=== PATIENT | male | born 2005 | race Caucasian/White ===

== ENCOUNTER 2023-07-01 13:51 | Emergency (ER) | payer OTHER, SELFPAY ==
[2023-07-01 14:40] VITALS: BP 129/71; PULSE 76; RESP 19; TEMP 36.6; O2SAT 100; BMI 30.3
--- NOTE | 2023-07-01 15:05 | EXP.UTC ---
Discharge Plan Disposition Patient Disposition: Home, Self-Care Condition: Good Prescriptions Prescriptions: New sulfamethoxazole-trimethoprim [Bactrim DS] 800-160 mg tablet 1 tab PO Q12H Qty: 20 0RF cephalexin 500 mg capsule 500 mg PO TID 7 Days Qty: 21 0RF mupirocin 2 % ointment 1 applic topical TID 10 Days Qty: 22 0RF No Action Fycompa 4 mg tablet 8 mg PO DAILY Referrals Follow up/Referrals: Fransisco Davis DO [Primary Care Provider] - See instructions Activity Restrictions/Add. Instructions Additional Instructions/Restrictions: *Monitor Temp, Over the counter Motrin or Tylenol as directed/as needed Tylenol every 4 hours and Motrin every 6 hours (as long as your family doctor has told you that you can take it) for fever or pain. and straight to ER if unable to lower temp less than 101.0 after medication given *Warm salt water gargles may help to soothe the throat *Throat Lozenges? *Warm fluids like tea with honey may help to soothe the throat? *Sleep elevated *Humidifier/Vaporizer Your throat swab was sent for culture. Those results are typically sent to your primary care. Be sure to follow up in 2-3 days with your family doctor/primary care physician if no improvement so they can review those result and treat if necessary. If you don?t have a primary care doctor, I recommend you get one but in the mean time, you will have to return to a walk in clinic Follow up IMMEDIATELY for new or worsening symptoms or no Noticeable improvement over the next 48-72 hours. 911 for difficulty breathing or swallowing Clinical Impressions Clinical Impression: Skin problem Instructions Patient Instructions: DI for Boils, DI for Cellulitis -- Adult Discharge ED Provider: Loni Tena [facility] General Stated complaint: multiple boils on right calf, cough Mode of Arrival: Ambulatory Source of Information: Patient and Relative Limitations: No Limitations Time Seen by Provider: 07/01/23 15:05 Description of Symptoms (Recalled from Triage Doc. by RN): PATIENT C/O BOILS TO RIGHT LEG SINCE THIS MORNING HEENT Symptoms (Recalled from RN notes): No Resp Symptoms (Recalled from RN notes): No Skin Symptoms (Recalled from RN notes): Yes MS Symptoms (Recalled from RN notes): No Functional Status (Recalled from RN notes): WNL History of Present Illness Provider Complaint: Patient states that he noticed a boil like area on his right calf this morning and thinks that one is starting on his left upper thigh area States that he was worried if he didnt come in and get something they would get worse States that he has also been having cough scratchy throat wants to get tested for Flu and strep throat Related Data Home Medications Medication Instructions Recorded Confirmed perampanel 4 mg tablet (Fycompa) 8 mg PO DAILY 07/01/23 07/01/23 Previous Rx's Medication Instructions Recorded cephalexin 500 mg capsule 500 mg PO TID 7 days #21 caps 07/01/23 mupirocin 2 % topical ointment 1 applic topical TID 10 days #22 07/01/23 grams sulfamethoxazole 800 1 tab PO Q12H #20 tabs 07/01/23 mg-trimethoprim 160 mg tablet (Bactrim DS) Allergies Allergy/AdvReac Type Severity Reaction Status Date / Time No Known Allergies Allergy Verified 05/10/23 14:27 Worker's Comp Is this a Worker's Comp case?: No [facility] Disclaimer: The information contained in this section may have been updated after the patient was seen, as this information can be updated by other users. Medical History (Updated 07/01/23 @ 15:47 by Loni Tena APRN) Migraine Seizure disorder Family History (Updated 05/10/23 @ 14:42 by SOFÍA Adams) Son Adopted Mother Heart attack Hypertension Family/Other Asthma Cancer Coronary artery disease Grandmother Heart attack Social History Smoking Status: Never smoker alcoho
[2023-07-01 15:37] LABS: UTC Strep Screen (Rapid) Negative (Negative)
[2023-07-01 15:39] LABS: UTC Influenza A Antigen Negative (Negative)
[2023-07-01 15:40] LABS: UTC Influenza B Antigen Negative (Negative)
[2023-07-01 15:43] VITALS: BP 129/71; PULSE 76; RESP 19; TEMP 36.6; O2SAT 100
== END 2023-07-01 15:49 | disposition home or self-care (01) ==
PROVIDERS: Emergency Provider Nurse Practitioner; PCP Internal Medicine
DX: L02.92 Furuncle, unspecified (principal); L03.115 Cellulitis of right lower limb; R05.9 Cough, unspecified; R07.0 Pain in throat; G40.909 Epilepsy, unspecified, not intractable, without status epilepticus
CPT/HCPCS: 87804; 87880; 99204; 99212; G0463

== ENCOUNTER 2024-06-18 20:13 | Emergency (ER) | payer OTHER, SELFPAY ==
[2024-06-18 20:13] VITALS: BP 166/93; PULSE 121; RESP 18; TEMP 37.3; O2SAT 96; BMI 77.0
--- NOTE | 2024-06-18 20:20 | CT_ITS ---
PROCEDURE INFORMATION: Exam: CT Head Without Contrast Exam date and time: 06/18/2024 8:36 PM Age: 18 years old Clinical indication: Other: Fall seizure, anisocoria l>r; Additional info: Fall, seiure, anisocoria l>r TECHNIQUE: Imaging protocol: Computed tomography of the head without contrast. Radiation optimization: All CT scans at this facility use at least one of these dose optimization techniques: automated exposure control; mA and/or kV adjustment per patient size (includes targeted exams where dose is matched to clinical indication); or iterative reconstruction. COMPARISON: No relevant prior studies available. FINDINGS: Brain: Normal. No hemorrhage. Unremarkable white matter. No mass effect. Cerebral ventricles: No ventriculomegaly. Paranasal sinuses: Visualized sinuses are unremarkable. No fluid levels. Mastoid air cells: Visualized mastoid air cells are well aerated. Bones: Minimal mucosal thickening of the right maxillary and right ethmoid. No fluid levels. Soft tissues: Unremarkable. IMPRESSION: No acute intracranial abnormality.
--- NOTE | 2024-06-18 20:22 | ECG_ITS ---
APPROVED REPORT Exam: Resting ECG HR:110 bpm ECG Measurements Heart Rate 110 AXES MI 136 P 66 QRSd 99 QRS 15 QT 313 T 69 QTc 378 Conclusion SINUS TACHYCARDIA NONSPECIFIC T-WAVE ABNORMALITY ABNORMAL RHYTHM ECG UNCONFIRMED REPORT Electronically signed by : AGNES CASILLAS, 06/19/2024 06:44:09
--- NOTE | 2024-06-18 20:27 | HMH.EDGENADL ---
Discharge Plan Disposition Patient Disposition: Home, Self-Care Prescriptions Prescriptions: No Action Fycompa 10 mg tablet 10 mg PO Patient Comments: TAKE 1 TABLET BY MOUTH ONCE DAILY NIGHTLY MAX DAILY AMOUNT 10MG docusate sodium [Colace] 100 mg capsule 100 mg PO BID Qty: 60 0RF Jyotsna-Valentino Kit 2-2 % kit See Rx Instructions [place] .COMPLEX Qty: 1 1RF Rx Instructions: clean area with WIPE; insert applicatorful of HYDROCORTISONE-LIDOCAINE CREAM rectally 2 times daily Activity Restrictions/Add. Instructions Additional Instructions/Restrictions: Call your family doctor to establish care for this visit to the emergency department and schedule follow-up within 48 hours to ensure improvement. If you have any worsening of your condition or any other concerning signs or symptoms, return to the emergency department or your primary care doctor for further evaluation. Take Tylenol 1000 mg every 6 hours (4 times daily) and ibuprofen 400 mg every 6 hours (4 times daily) as needed with food and water to prevent GI upset and kidney damage. Seizure precautions - do not do any of these activities until cleared by your neurologist: 1) avoid sleep deprivation 2) avoid open bodies of water and open flames 3) avoid swimming alone 4) take showers, do not take baths 5) avoid any situation where loss of consciousness may predispose to injury or 6) avoid driving Clinical Impressions Clinical Impression: Generalized tonic-clonic seizure Stand Alone Forms Stand Alone Forms: Work/School Release Instructions Patient Instructions: DI for Seizure Disorder -- Adult, DI for Seizure (Not Epilepsy/Seizure Disorder), DI for Seizure Disorder -- Child Print Language Print Language: Lithuanian Discharge ED Provider: Bhanu Muñoz General Adult HPI General Chief complaint: Seizure Stated complaint: Seizure Time Seen by Provider: 06/18/24 20:18 History of Present Illness HPI narrative: Please note that above description of symptoms, in this electronic medical record under categorization of recalled from ER triage doctor by RN are reflective of an initial nursing assessment, however, is not reflective of my full history and physical exam that was personally taken and clarified. Consequentially, this preceding description of symptoms, which may include the patient's categorized chief complaint in the EMR, do not reflect my personal clinical impression, and the ultimate description of history of present illness and patient stated complaints should be deferred to this section of the note. Unless stated otherwise or congruent with this section of the note, additional signs, symptoms, or incongruence should be interpreted as inaccurate with my clinical impression. Related Data Home Medications ?Medication ?Instructions ?Recorded ?Confirmed perampanel 10 mg tablet (Fycompa) 10 mg PO 03/02/24 03/02/24 Previous Rx's ?Medication ?Instructions ?Recorded docusate sodium 100 mg capsule 100 mg PO BID #60 caps 03/05/24 (Colace) lidocaine 2 %-hydrocortisone 2 See Rx Instructions ND .COMPLEX #1 03/05/24 %-aloe vera rectal kit (Jyotsna-Valentino) ea Allergies Allergy/AdvReac Type Severity Reaction Status Date / Time No Known Allergies Allergy Verified 03/02/24 09:38 [facility] Disclaimer: The information contained in this section may have been updated after the patient was seen, as this information can be updated by other users. Medical History (Updated 06/18/24 @ 22:42 by Bhanu Muñoz MD) Bright red blood per rectum Establishing care with new doctor, encounter for Skin problem Seizure disorder Migraine Surgical History No significant past surgical history Family History Son Adopted Mother Heart attack Hypertension Family/Other Asthma Cancer Coronary artery disease Grandmother Heart attack Social History Smoking Status: Never smoker alcohol intake: never substance use type: denies use current occupational status: unemployed Travel in the last 8 weeks: None Other Medical History Have you received the Pneumonia Vaccine: No ROS Obtained: Yes All systems reviewed & no additional complaints except as documented Physical Exam General General appearance: alert and in no apparent distress Head Head exam: atraumatic and normocephalic Eye Eye exam: Present normal appearance and EOMI; Absent PERRL (anisocoria, L>R 1mm) Neck Neck exam: Present normal inspection, full ROM and trachea midline Respiratory Respiratory exam: Present normal lung sounds bilaterally; Absent respiratory distress, wheezes, stridor, accessory muscle use or prolonged expiratory phase Cardiovascular Cardiovascular exam: Present regular rate, normal rhythm and other (Pulses equal symmetric in upper and lower extremities) Abdominal Exam Abdominal exam: Present soft; Absent distention, tenderness or pulsatile mass Extremities Exam Extremities exam: Absent edema Neurological Exam Neurological exam: Present alert, oriented X3, CN II-XII intact, reflexes normal and other (normal cerebellar exam); Absent motor sensory deficit Skin Skin exam: Present warm and dry; Absent diaphoresis or erythema Medical Decision Making Medical Records Medical records reviewed: Yes I reviewed the patient's medical records. Screening: Per USPSTF and CDC recommendations, given the prevalence of disease in our region, it is our hospital?s policy to screen for HIV and viral Hepatitis for all patients aged 18 and over and those with ongoing risk factors. Bhupinder Inquiry Pt receiving controlled substance: No Bhupinder was queried for this patient: No Vital Signs: 06/18/24 20:13 06/18/24 20:47 06/18/24 22:55 Temperature 99.1 F 0 F L 0 F L Temperature Source Oral Pulse Rate 89 81 Pulse Rate [Apical] 121 H Respiratory Rate 18 20 18 Blood Pressure 131/69 121/69 Blood Pressure [Right Arm] 166/93 H Blood Pressure Mean [Right Arm] 117 02 Sat by Pulse Oximetry 96 98 Oxygen Delivery Method Room Air Room Air Room Air Lab Data Lab Results 06/18/24 20:21: WBC 10.2, RBC 4.91, Hgb 16.1, Hct 47.7, MCV 97.0 H, MCH 32.9 H, MCHC 33.9, RDW 12.5, Plt Count 347, MPV 6.8 L, Neut % (Auto) 58.4, Lymph % (Auto) 32.6, [place] % (Auto) 5.1, Eos % (Auto) 2.8, Baso % (Auto) 1.1, Neut # (Auto) 6.0, Lymph # (Auto) 3.3, Will[place] # (Auto) 0.5, Eos # (Auto) 0.3, Baso # (Auto) 0.1, PT 11.4, INR 1.02, Sodium 139, Potassium 4.0, Chloride 102, Carbon Dioxide 20 L, Anion Gap 21.0 H, BUN 23 H, Creatinine 1.30 H, Estimated Creat Clear 102, Estimated GFR 70, Est GFR ( Amer) 85, Glucose 111 H, Calcium 9.7, Magnesium 2.0, Total Bilirubin 0.5, AST 42, ALT 33, Alkaline Phosphatase 54, Troponin I < 0.01, Total Protein 7.9, Albumin 5.1 H, Globulin 2.8, Albumin/Globulin Ratio 1.8, Lipase 133, TSH 2.61, Thyroxine (T4) 7.1, Salicylates < 1.0 L, Acetaminophen < 10 L, Plasma/Serum Alcohol < 10, HIV 1&2 Antibody Rapid Nonreactive 06/18/24 20:23: VBG pH 7.27 L, VBG pCO2 42.1, VBG pO2 46.8 H, VBG HCO3 18.8 L, VBG Total CO2 20.1 L, VBG O2 Saturation 78.3 H, VBG Base Excess -8.2 L, VBG Lactic Acid 7.9 H 06/18/24 21:32: Urine Color Yellow, Urine Appearance Clear, Urine pH 6.0, Ur Specific Elbe >= 1.030, Urine Protein 2+ A, Urine Glucose (UA) Negative, Urine Ketones Negative, Urine Blood 1+ A, Urine Nitrate Negative, Urine Bilirubin Negative, Urine Urobilinogen 0.2, Ur Leukocyte Esterase Negative, Urine RBC None, Urine WBC Occasional, Ur Squamous Epith Cells Occasional, Urine Bacteria Trace, Urine Opiates Screen Negative, Urine Methadone Screen Negative, Ur Barbituates Screen Negative, Ur Phencyclidine Scrn Negative, Ur Amphetamines Screen Negative, Urine Cocaine Screen Negative, U Marijuana (THC) Screen Negative 06/18/24 20:21 06/18/24 20:21 Orders (Tests/Meds): ED MEDICATIONS Discontinued Medications Generic Name Dose Route Start Last Admin Trade Name Meolq PRN Reason Stop Dose Admin Acetaminophen 1,000 mg 06/18/24 21:34 06/18/24 21:36 Acetaminophen 500mg Tab PO 06/18/24 21:35 1,000 mg ONCE ONE Administration Levetiracetam 2,400 mg/ Sodium 124 mls @ 248 mls/hr 06/18/24 20:45 06/18/24 21:03 Chloride IV 06/18/24 20:46 248 mls/hr ONCE ONE Administration Lactated Ringer's 1,000 mls @ 999 mls/hr 06/18/24 21:41 06/18/24 21:50 Lactated Ringer's 1000 Ml Bag IV 06/18/24 22:41 999 mls/hr .Q1H1M ONE Administration Ketorolac Tromethamine 15 mg 06/18/24 22:40 06/18/24 22:45 Ketorolac 30mg/Ml Vial IV 06/18/24 22:41 15 mg ONCE ONE Administration ORDERS Category Date Time Status CT head/brain wo con Stat Cat Scan 06/18/24 20:20 Completed Acetaminophen Stat Lab 06/18/24 20:21 Completed Complete Blood Count Auto Diff Stat Lab 06/18/24 20:21 Completed Comprehensive Metabolic Panel Stat Lab 06/18/24 20:21 Completed Ethanol [Ethyl Alcohol] Stat Lab 06/18/24 20:21 Completed HIV (1&2) Antibody Rapid Stat Lab 06/18/24 20:21 Completed Hep C Ab with Reflex to RNA Stat Lab 06/18/24 20:21 Received Lipase Stat Lab 06/18/24 20:21 Completed Magnesium Stat Lab 06/18/24 20:21 Completed PT INR [Prothrombin Time INR] Stat Lab 06/18/24 20:21 Completed Salicylate Stat Lab 06/18/24 20:21 Completed T4 (Thyroxine) Stat Lab 06/18/24 20:21 Completed TSH [Thyroid Stimulating Hormone] Stat Lab 06/18/24 20:21 Completed Troponin I Q3H Lab 06/18/24 23:30 Ordered Troponin I Stat Lab 06/18/24 20:21 Completed UDS [Drug Screen,Urine] Stat Lab 06/18/24 21:32 Results Urinalysis and Microscopic Stat Lab 06/18/24 21:32 Completed Venous Blood Gas Stat RT 06/18/24 20:23 Completed Medical Decision Narrative: 18-year-old male history of seizure disorder on Briviact presenting with seizure. Patient was found at a local establishment on the ground. Unknown how long he was there. Patient states he does not remember anything from today, 06/18. States that he has a headache. Family states that he is always complaining of headache. Further conversation reveals that patient had episode where he fell at home, unknown seizure activity about a week prior to this. Denies neck pain, chest pain, nausea, vomiting. States that his tongue hurts. EMS was called. On arrival, glucose greater than 120. Patient disoriented. Brought to ED for further evaluation. On arrival, patient alert, oriented, but slow to respond. Neuroexam with anisocoria left pupil 4 mm and reactive, right 3 mm and reactive, but otherwise cranial nerves are intact and symmetric. Motor and sensory exam intact and symmetric. Cerebellar exam normal in upper and lower extremities. Cardiac exam without murmurs gallops or rubs. Abdomen soft, nontender, nondistended. Patient has bilateral conjunctival injection, bite dunn on his tongue. Did not appear to lose continence. Denies drug or alcohol use. Differential includes epileptic seizure, metabolic, endocrinologic, drug-induced, intoxication, withdrawal, among others. Patient placed in seizure precautions, EKG was obtained and independently interpreted. Sinus tachycardia 110 bpm with ND interval 136, QRS 99, QTc 378. Leftward axis. No acute ischemic change. Patient placed on gambling monitor and continuous pulse oximetry with initial blood pressure 166/93, heart rate 121, O2 sat 96% on room air. Given 20 Mg per KG Keppra load IV. Hematologic workup independently interpreted and significant for nonactionable CBC. Chemistry with DAVID, given fluids for this.. Urine independently interpreted and significant for hematuria and proteinuria. Total protein and albumin normal. Thyroid studies normal imaging independently interpreted and significant for no acute intracranial hemorrhage. On repeat evaluation, patient states that he is feeling better, no further episodes here in the emergency department. Has close follow-up with his neurologist, family at bedside to corroborate this. Given 15 mg Toradol after fluids and discharged. Because patient at baseline without signs or symptoms of clinical decompensation, deemed appropriate for discharge. Results were relayed to patient who voiced understanding and were agreeable to outpatient management and follow up. I discussed my clinical impression with patient and answered all questions. At this time, the evidence for any other entities in the differential is insufficient to warrant any further testing or ED observation. This was explained as well. Advisory was given that persistent or worsening symptoms require further evaluation. I confirmed the understanding of this discussion. Chief Specialist Leed disclaimer Much of this encounter note is an electronic clean rice grader and reel tender spoken language to printed text. Electronic clean rice grader and reel tender of the spoken language may permit errors. Although I have reviewed the note, some errors may still exist. Critical Care Critical Care Time Critical Care Time: No
[2024-06-18 20:36] LABS: Basophils # 0.1 K/mm3 (0-0.2); Basophils % 1.1 % (0.1-2.0); Eosinophils # 0.3 K/mm3 (0.0-0.4); Eosinophils % 2.8 % (0.1-12.0); Hematocrit 47.7 % (42.0-52.0); Hemoglobin 16.1 g/dL (14.1-18.0); Lymphocytes # 3.3 K/mm3 (0.7-4.5); Lymphocytes % 32.6 % (10-50); Mean Corpuscular HGB Conc 33.9 g/dL (31.8-35.4); Mean Corpuscular Hemoglobin 32.9 pg (27.0-31.2); Mean Platelet Volume 6.8 fl (7.4-10.4); Monocytes # 0.5 K/mm3 (0.1-1.0); Monocytes % 5.1 % (1.7-9.3); Neutrophils % 58.4 % (37.0-80.0); Platelet Count 347 K/mm3 (142-424); Red Blood Count 4.91 M/mm3 (4.60-6.20); Red Cell Distribution Width 12.5 % (11.5-17.5); White Blood Count 10.2 K/mm3 (4.5-13.0)
[2024-06-18 20:45] LABS: INR 1.02 (0.9-1.1); Prothrombin Time 11.4 seconds (10.1-12.5)
[2024-06-18 20:47] VITALS: BP 131/69; PULSE 89; RESP 20; TEMP -17.7; TEMP 0; O2SAT 98
[2024-06-18 20:49] LABS: Alanine Aminotransferase 33 U/L (12-78); Albumin Level 5.1 g/dl (3.5-5.0); Albumin/Globulin Ratio 1.8 (1.1-1.8); Alkaline Phosphatase 54 U/L (38-126); Aspartate Amino Transferase 42 U/L (17-59); Bilirubin,Total 0.5 mg/dl (0.2-1.3); Blood Urea Nitrogen 23 mg/dl (9-20); Calcium 9.7 mg/dl (8.4-10.2); Carbon Dioxide 20 mmol/L (22.0-30.0); Chloride 102 mmol/L (98-107); Creatinine Clearance Estimated 102 mL/min (50-200); Estimated Glomerular Filt Rate 70 ml/min (>60); GFR (African American) 85 ML/MIN (>60); Globulin 2.8 g/dL (1.3-3.2); Glucose 111 mg/dl (74-100); Sodium 139 mmol/L (136-145); Total Protein,Serum 7.9 g/dl (6.3-8.2)
[2024-06-18 20:53] LABS: VBG Base Excess -8.2 mmol/L (-2.4-2.3); VBG HCO3 18.8 mmol/L (23-30); VBG Oxygen Saturation 78.3 % (50-70); VBG PCO2 42.1 mmol/L (35-51); VBG PH 7.27 mmol/L (7.31-7.41); VBG PO2 46.8 mmol/L (28-40); VBG Total CO2 20.1 mmol/L (23-27)
[2024-06-18 20:54] LABS: Lactate Venous 7.9 mmol/L (0.4-2.0)
--- NOTE | 2024-06-18 20:54 | PC.NURSE ---
respiratory called VBG result, lactic 7.9
[2024-06-18] MEDS: LEVETIRACETAM IV (21:03)
[2024-06-18] MEDS: SODIUM CHLORIDE 0.9% IV (21:03)
[2024-06-18 21:06] LABS: T4 (Thyroxine) 7.1 ug/dl (5.53-11.0)
[2024-06-18 21:20] LABS: Thyroid Stimulating Hormone 2.61 uIU/mL (0.465-4.68)
[2024-06-18 21:22] LABS: Acetaminophen < 10 ug/ml (10-30); Salicylate < 1.0 mg/dL (2.0-20.0); Troponin I < 0.01 ng/ml (0.00-0.034)
[2024-06-18 21:23] LABS: Ethyl Alcohol < 10 mg/dl (0-10)
[2024-06-18] MEDS: ACETAMINOPHEN 500MG TAB 1000 MG PO (21:36)
[2024-06-18 21:40] LABS: Microscopic, Urine URINE MICROSCOPIC (MICROSCOPIC)
[2024-06-18] MEDS: LACTATED RINGERS 1000ML 1,000 ML 999 ML IV (21:50)
[2024-06-18 21:55] LABS: Lipase 133 U/L (23-300)
[2024-06-18 21:58] LABS: Appearance,Urine CLEAR (Clear); Bilirubin,Urine Negative (Negative); Blood, Urine 1+ (Negative); Color,Urine YELLOW (Yellow); Glucose,Urine (UA) Negative (Negative); Ketones,Urine Negative (Negative); Leukocyte Esterase,Urine Negative (Negative); Nitrate,Urine Negative (Negative); Protein,Urine 2+ (Negative); Specific Gravity, Urine >= 1.030 (1.005-1.030); Urobilinogen,Urine 0.2 EU/dl (0.2)
[2024-06-18 22:09] LABS: HIV (1&2) Antibody Rapid NONREACTIVE (NONREACTIVE)
[2024-06-18 22:27] LABS: Bacteria,Urine Trace /lpf; Squamous Epithelial Cell,Urine Occasional #/hpf (0-5); WBC,Urine Occasional #/hpf (0-3)
[2024-06-18 22:32] LABS: Amphetamine/Metha Screen,Urine Negative ng/ml (<1000)
[2024-06-18 22:33] LABS: Barbiturates Screen,Urine Negative ng/ml (<200)
[2024-06-18 22:34] LABS: Cannabinoid Screen,Urine Negative ng/ml (<50)
[2024-06-18 22:35] LABS: Cocaine Screen,Urine Negative ng/ml (<300)
[2024-06-18 22:36] LABS: Methadone Screen,Urine Negative ng/ml (<300)
[2024-06-18 22:37] LABS: Phencyclidine Screen,Urine Negative ng/ml (<25)
[2024-06-18 22:41] LABS: Opiate Screen,Urine Negative ng/ml (<300)
[2024-06-18] MEDS: KETOROLAC 30MG/ML VIAL 15 MG IV (22:45)
[2024-06-18 22:55] VITALS: BP 121/69; PULSE 81; RESP 18; TEMP -17.7; TEMP 0; O2SAT 98
[2024-06-18 23:20] LABS: Benzodiazepines Screen,Urine Negative ng/ml (<200)
[2024-06-20 08:42] LABS: HCV Ab Non Reactive (Non Reactive)
== END 2024-06-18 22:57 | disposition home or self-care (01) ==
PROVIDERS: Emergency Provider Emergency Medicine; PCP Family Medicine
DX: G40.409 Other generalized epilepsy and epileptic syndromes, not intractable, without status epilepticus (principal); R41.82 Altered mental status, unspecified; R51.9 Headache, unspecified
CPT/HCPCS: 70450; 80050; 80053; 80307; 80320; 80329; 81001; 82803; 83690; 83735; 84436; 84443; 84484; 85025; 85610; 86803; 87389; 93005; 96361; 96374; 96375; 99284; G0480; J1885; J1953; J7120

== ENCOUNTER 2025-06-11 13:45 | Emergency (ER) | payer OTHER, SELFPAY ==
--- NOTE | 2025-06-11 13:46 | HMH.EDGENADL ---
Discharge Plan Prescriptions Prescriptions: No Action Fycompa 10 mg tablet 10 mg PO Patient Comments: TAKE 1 TABLET BY MOUTH ONCE DAILY NIGHTLY MAX DAILY AMOUNT 10MG docusate sodium [Colace] 100 mg capsule 100 mg PO BID Qty: 60 0RF Jyotsna-Valentino Kit 2-2 % kit See Rx Instructions [place] .COMPLEX Qty: 1 1RF Rx Instructions: clean area with WIPE; insert applicatorful of HYDROCORTISONE-LIDOCAINE CREAM rectally 2 times daily Referrals Follow up/Referrals: Fransisco Davis DO [Primary Care Provider, Family Practice] - See instructions Print Language Print Language: Wallisian Discharge ED Provider: Praveen Turpin Adult HPI General Stated complaint: Seizure Time Seen by Provider: 06/11/25 13:46 Related Data Home Medications ?Medication ?Instructions ?Recorded ?Confirmed perampanel 10 mg tablet (Fycompa) 10 mg PO 03/02/24 03/02/24 Previous Rx's ?Medication ?Instructions ?Recorded docusate sodium 100 mg capsule 100 mg PO BID #60 caps 03/05/24 (Colace) lidocaine 2 %-hydrocortisone 2 See Rx Instructions [place] .COMPLEX #1 03/05/24 %-aloe vera rectal kit (Jyotsna-Valentino) ea Allergies Allergy/AdvReac Type Severity Reaction Status Date / Time No Known Allergies Allergy Verified 03/02/24 09:38 [facility] Disclaimer: The information contained in this section may have been updated after the patient was seen, as this information can be updated by other users. Medical History (Updated 06/18/24 @ 22:42 by Bhanu Muñoz MD) Bright red blood per rectum Establishing care with new doctor, encounter for Skin problem Seizure disorder Migraine Surgical History No significant past surgical history Family History Son Adopted Mother Heart attack Hypertension Family/Other Asthma Cancer Coronary artery disease Grandmother Heart attack Social History Smoking Status: Never smoker alcohol intake: never substance use type: denies use current occupational status: unemployed Travel in the last 8 weeks?: None Other Medical History Have you received the Pneumonia Vaccine: No Medical Decision Making Medical Records Screening: Per USPSTF and CDC recommendations, given the prevalence of disease in our region, it is our hospital?s policy to screen for HIV and viral Hepatitis for all patients aged 18 and over and those with ongoing risk factors.
[2025-06-11 13:50] VITALS: BP 172/96; PULSE 100; RESP 18; TEMP 36.8; O2SAT 97; BMI 33.9
--- NOTE | 2025-06-11 13:52 | CT_ITS ---
FINAL REPORT TECHNIQUE: Thin section axial images were obtained from skull base to vertex without contrast. Coronal reconstruction images were obtained from the axial data. Exam was performed using dose reduction techniques such as automated exposure control, adjustment of the mA and kV according to patient size, and use of iterative reconstruction technique. CLINICAL HISTORY: seizure/unknown fall COMPARISON: 06/19/2024 FINDINGS: There is no mass effect or midline shift. There is no hydrocephalus. There is no intracranial hemorrhage. The posterior fossa is without acute abnormality. The basilar cisterns are preserved. There is mild mucoperiosteal thickening of the right maxillary sinus. No acute osseous abnormality is identified. IMPRESSION: No acute intracranial abnormality. Reviewed, Interpreted and Dictated by Kristen Garza MD Transcribed by Sherry Rojas Authenticated and [facility]
--- NOTE | 2025-06-11 13:56 | ED_ITS ---
<Statement entered by Praveen Turpin MD - 06/11/25 15:31> I independently examined this patient. 19-year-old male with history of seizure disorder. He reports compliance with his antiepileptics, but has been staying up late recently playing video games as well as had had slight congestion. It is possible that he had a breakthrough seizure, but also provoked in the setting of after mentioned. On exam, he is completely neurologically intact for me with cranial nerves intact and gross motor and sensory in upper and lower extremities are intact. He did bite his tongue, but this is hemostatic. He is completely back to his baseline and confirmed by friend at bedside. He is ambulatory about the emergency department and tolerating oral intake. Has good follow-up with his neurologist. Seizure precautions on discharge. I independently interpreted the CT head to demonstrate no acute intracranial abnormality. I was consulted by the DOUGLAS, and we discussed the complexity of problems being addressed. I approved the treatment and management plan for this patient's care in the emergency department, thus performing a substantial portion of the medical decision making. Praveen Turpin MD Discharge Plan Disposition Chief Complaint: Seizure Prescriptions Prescriptions: No Action Fycompa 10 mg tablet 10 mg PO Patient Comments: TAKE 1 TABLET BY MOUTH ONCE DAILY NIGHTLY MAX DAILY AMOUNT 10MG docusate sodium [Colace] 100 mg capsule 100 mg PO BID Qty: 60 0RF Jyotsna-Valentino Kit 2-2 % kit See Rx Instructions MO .COMPLEX Qty: 1 1RF Rx Instructions: clean area with WIPE; insert applicatorful of HYDROCORTISONE-LIDOCAINE CREAM rectally 2 times daily Referrals Follow up/Referrals: Fransisco Davis DO [Primary Care Provider, Family Practice] - See instructions Instructions Patient Instructions: DI for Seizure Disorder in Adults, DI for Seizure (Not Epilepsy/Seizure Disorder), DI for Seizure Disorder in Child Print Language Print Language: Hebrew Discharge ED Provider: Praveen Turpin General Adult HPI General Chief complaint: Seizure Stated complaint: Seizure Time Seen by Provider: 06/11/25 13:46 Mode of Arrival: EMS Source of Information: EMS Description of Symptoms (Recalled from ER Triage Doc. by RN): Pt arrived via EMS following an unwitnessed seizure at his house. Pt states he started to feel dizzy and lost conciousness and doesn't remember what else happened. Pt hit his head as well as bit part of his tongue. Pt main complaint is the headache History of Present Illness HPI narrative: -year-old male presents to the ED today for complaint of seizure that was unwitnessed at his house today. He says he knows when his seizure is coming because he starts to feel dizzy and that he has the seizure. He says his last seizure was in May. He did bite his tongue. His main complaint right now has his headache. He said he saw his neurologist about 5 months ago. He sees . No nausea, vomiting. No recent illness. No fevers or chills. Related Data Home Medications ?Medication ?Instructions ?Recorded ?Confirmed perampanel 10 mg tablet (Fycompa) 10 mg PO 03/02/24 Previous Rx's ?Medication ?Instructions ?Recorded docusate sodium 100 mg capsule 100 mg PO BID #60 caps 03/05/24 (Colace) lidocaine 2 %-hydrocortisone 2 See Rx Instructions MO .COMPLEX #1 03/05/24 %-aloe vera rectal kit (Jyotsna-Valentino) ea Allergies Allergy/AdvReac Type Severity Reaction Status Date / Time No Known Allergies Allergy Verified 03/02/24 09:38 [facility] Disclaimer: The information contained in this section may have been updated after the patient was seen, as this information can be updated by other users. Medical History (Updated 06/18/24 @ 22:42 by Bhanu Muñoz MD) Bright red blood per rectum Establishing care with new doctor, encounter for Skin problem Seizure disorder Migraine Surgical History No significant past surgical history Family History Son Adopted Mother Heart attack Hypertension Family/Other Asthma Cancer Coronary artery disease Grandmother Heart attack Social History Smoking Status: Never smoker alcohol intake: never substance use type: denies use current occupational status: unemployed Travel in the last 8 weeks?: None Have you lived/traveled outside [place] in past 30 days?: No Contact w/someone who lives/traveled outside [place] past 30 days?: No Exposure to someone with infectious disease in past 14 days?: No Do you have a fever (greater than 100.4 F or 38 C)?: No Have you tested positive for COVID-19?: No Exposed to someone with COVID-19 in past 14 days?: No Do you have a sore throat?: No Do you have a cough?: No Do you have any weakness?: No Do you have any diarrhea?: No Are you experiencing any unusual bleeding?: No Do you have any muscle aches/pain?: No Do you have any abdominal pain?: No Are you experiencing loss of taste or smell?: No Other Medical History Have you received the Pneumonia Vaccine: No ROS Obtained: Yes Systems reviewed as appropriate & no additional complaints except as documented Constitutional Constitutional: Reports as per HPI Physical Exam General General appearance: alert and in no apparent distress Head Head exam: atraumatic and normocephalic Eye Eye exam: Present PERRL and EOMI ENT ENT exam: Present mucous membranes moist and other (Blood coming from his mouth from his tongue that he bit) Neck Neck exam: Present full ROM and trachea midline Respiratory Respiratory exam: Present normal lung sounds bilaterally Cardiovascular Cardiovascular exam: Present regular rate, normal rhythm, normal heart sounds, +S1 and +S2 Abdominal Exam Abdominal exam: Present soft and normal bowel sounds Extremities Exam Extremities exam: Present normal inspection, full ROM and normal capillary refill Neurological Exam Neurological exam: Present alert and oriented X3 Skin Skin exam: Present warm and dry Medical Decision Making Medical Records Screening: Per USPSTF and CDC recommendations, given the prevalence of disease in our region, it is our hospital?s policy to screen for HIV and viral Hepatitis for all patients aged 18 and over and those with ongoing risk factors. Bhupinder Inquiry Pt receiving controlled substance: No Bhupinder was queried for this patient: No Vital Signs: 06/11/25 13:50 06/11/25 14:01 06/11/25 14:24 Temperature 98.3 F Temperature Source Oral Pulse Rate 93 H Pulse Rate [Right] 100 H Respiratory Rate 18 17 17 Blood Pressure 192/159 H 129/68 Blood Pressure [Right Arm] 172/96 H Blood Pressure Mean [Right Arm] 121 Blood Pressure Source [Right Arm] Automatic Cuff Blood Pressure Position [Right Arm] Sitting 02 Sat by Pulse Oximetry 97 97 97 Oxygen Delivery Method Room Air Room Air Room Air 06/11/25 14:31 Temperature Temperature Source Pulse Rate 98 H Pulse Rate [Right] Respiratory Rate 14 Blood Pressure 134/78 Blood Pressure [Right Arm] Blood Pressure Mean [Right Arm] Blood Pressure Source [Right Arm] Blood Pressure Position [Right Arm] 02 Sat by Pulse Oximetry 98 Oxygen Delivery Method Room Air Lab Data Lab Results 06/11/25 13:49: WBC 7.1, RBC 5.08, Hgb 17.0, Hct 47.9, MCV 94.3 H, MCH 33.5 H, M CHC 35.5 H, RDW 11.4 L, Plt Count 272, MPV 8.6, Neut % (Auto) 66.3, Lymph % (Auto) 21.0, Greenlee % (Auto) 7.1, Eos % (Auto) 4.4, Baso % (Auto) 0.6, Neut # (Auto) 4.7, Lymph # (Auto) 1.5, Greenlee # (Auto) 0.5, Eos # (Auto) 0.3, Baso # (Auto) 0.0 06/11/25 13:56: Lactate 1.8 06/11/25 14:00: Sodium 139, Potassium 4.1, Chloride 100, Carbon Dioxide 27, A nion Gap 16.1 H, BUN 20, Creatinine 1.00, Estimated Creat Clear 187, Estimated GFR 94, Est GFR ( Amer) 114, Glucose 134 H, Calcium 9.4, Magnesium 1.8, Total Bilirubin 0.4, AST 35, ALT 35, Alkaline Phosphatase 55, Total Protein 7.8, Albumin 4.7, Globulin 3.1, Albumin/Globulin Ratio 1.5, Lipase 82 06/11/25 13:49 06/11/25 14:00 Orders (Tests/Meds): ED MEDICATIONS Discontinued Medications Generic Name Dose Route Start Last Admin Trade Name Meloq PRN Reason Stop Dose Admin Acetaminophen 1,000 mg 06/11/25 13:56 06/11/25 14:05 Acetaminophen 1,000mg/100ml Vial IV 06/11/25 13:57 1,000 mg ONCE ONE Administration Sodium Chloride 1,000 mls @ 999 mls/hr 06/11/25 13:55 06/11/25 14:05 Sod Chlor 0.9% 1000ml Bag IV 06/11/25 14:55 999 mls/hr .Q1H1M ONE Administration ORDERS Category Date Time Status CT head/brain wo con Stat Cat Scan 06/11/25 13:52 Completed CBC [Complete Blood Count Auto Diff] Stat Lab 06/11/25 13:49 Completed Comprehensive Metabolic Panel Stat Lab 06/11/25 14:00 Completed Lactic Acid Stat Lab 06/11/25 13:56 Completed Lipase Stat Lab 06/11/25 14:00 Completed Magnesium Stat Lab 06/11/25 14:00 Completed Urinalysis and Microscopic Stat Lab 06/11/25 14:03 Ordered Medical Decision Narrative: patient is a 19-year-old male presenting to the emergency department for evaluation of seizure prior to arrival. Patient is hemodynamically stable and nontoxic-appearing upon arrival, afebrile. Differential diagnosis includes seizure unwitnessed prior to arrival, concern over unwitnessed fall with headache. Workup will be conducted with hematologic labs, specific imaging including CT of head rule out any head injury. Initial inventions include crystalloid bolus, analgesics. Initial workup reviewed by me hematologic labs are remarkable for White blood cell count is 7.1, H&H is normal, electrolytes were all normal patient does have a 134 glucose. Lactate was 1.[address] scan showed no acute intracranial abnormality. His mom is on the phone with his neurologist making an appointment as we speak. Discussed with Dr. Turpin who agrees with the plan. Patient will be discharged home. If any further problems or concerns please return to the ED. Critical Care Critical Care Time Critical Care Time: No
[2025-06-11 14:01] VITALS: BP 192/159; RESP 17; O2SAT 97
[2025-06-11] MEDS: ACETAMINOPHEN 1,000MG/100ML VIAL 1000 MG IV (14:05)
[2025-06-11] MEDS: 0.9 % SODIUM CHLORIDE 1000ML 1,000 ML 999 ML IV (14:05)
[2025-06-11 14:06] LABS: Hematocrit 47.9 % (42.0-52.0); Hemoglobin 17.0 g/dL (14.1-18.0); Immature Granulocytes % 0.6 %; Mean Corpuscular HGB Conc 35.5 g/dL (31.8-35.4); Mean Corpuscular Hemoglobin 33.5 pg (27.0-31.2); Mean Corpuscular Volume 94.3 fl (80-94); Nucleated Red Blood Cells % 0 %; Platelet Count 272 K/mm3 (142-424); Red Blood Count 5.08 M/mm3 (4.60-6.20); Red Cell Distribution Width-SD 39.4 fL; White Blood Count 7.1 K/mm3 (4.8-10.8)
[2025-06-11 14:14] LABS: Albumin Level 4.7 g/dl (3.5-5.0); Chloride 100 mmol/L (98-107); Sodium 139 mmol/L (136-145)
[2025-06-11 14:15] LABS: Potassium 4.1 mmoL/L (3.5-5.1)
[2025-06-11 14:17] LABS: Alanine Aminotransferase 35 U/L (12-78); Albumin/Globulin Ratio 1.5 (1.1-1.8); Alkaline Phosphatase 55 U/L (38-126); Anion Gap 16.1 mEq/L (5-15); Aspartate Amino Transferase 35 U/L (17-59); Bilirubin,Total 0.4 mg/dl (0.2-1.3); Blood Urea Nitrogen 20 mg/dl (9-20); Carbon Dioxide 27 mmol/L (22.0-30.0); Creatinine Clearance Estimated 187 mL/min (50-200); Creatinine,Serum 1.00 mg/dl (0.66-1.25); Estimated Glomerular Filt Rate 94 ml/min (>60); GFR (African American) 114 ML/MIN (>60); Globulin 3.1 g/dL (1.3-3.2); Glucose 134 mg/dl (74-100); Lipase 82 U/L (23-300); Total Protein,Serum 7.8 g/dl (6.3-8.2)
[2025-06-11 14:18] LABS: Calcium 9.4 mg/dl (8.4-10.2); Magnesium 1.8 mg/dl (1.6-2.3)
[2025-06-11 14:24] VITALS: BP 129/68; PULSE 93; RESP 17; O2SAT 97
[2025-06-11 14:31] VITALS: BP 134/78; PULSE 98; RESP 14; O2SAT 98
[2025-06-11 15:00] VITALS: BP 139/75; PULSE 91; RESP 20; O2SAT 97
[2025-06-11 15:26] VITALS: BP 139/75; PULSE 95; RESP 20; TEMP 36.7; O2SAT 98
== END 2025-06-11 15:28 | disposition home or self-care (01) ==
PROVIDERS: Nurse Practitioner; Emergency Provider Emergency Medicine; PCP Internal Medicine
DX: G40.909 Epilepsy, unspecified, not intractable, without status epilepticus (principal); R51.9 Headache, unspecified; S01.512A Laceration without foreign body of oral cavity, initial encounter; W26.8XXA Contact with other sharp object(s), not elsewhere classified, initial encounter
CPT/HCPCS: 70450; 80053; 83605; 83690; 83735; 85025; 96361; 96374; 99284; J0131; J7030